=== PATIENT | female | born 1975 | race Two or more races ===

== ENCOUNTER 2017-03-18 16:30 | Emergency (ER) | payer BC, OTHER ==
[~2017-03-18] VITALS: Ht 160 cm; Wt 115.2 kg
[2017-03-18 16:58] LABS: Basophils # (auto) 0 uL; Basophils % (auto) 0.3 % (0.0-2.0); Eosinophils # (auto) 0.2 uL; Eosinophils % (auto) 1.8 % (0.0-7.0); Hematocrit 39.7 % (36.0-46.0); Hemoglobin 13.4 g/dL (12.2-16.2); Lymphocytes # (auto) 3.7 uL; Lymphocytes % (auto) 39.7 % (10.0-50.0); Mean Corpuscular Hemoglobin 29.6 pg (28.0-32.0); Mean Corpuscular Hgb Conc. 33.6 g/dL (32.0-36.0); Mean Corpuscular Volume 87.9 fL (80.0-100.0); Mean Platelet Volume 9.3 fL (7.4-10.4); Monocytes # (auto) 0.6 uL; Monocytes % (auto) 6.2 % (0.0-12.0); Neutrophils # (auto) 4.8 uL; Platelet Count (auto) 291 10^3/uL (140-450); Red Cell Distribution Width 13.8 % (11.6-16.0); White Blood Cell 9.3 10^3/uL (4.4-10.8)
[2017-03-18 17:10] LABS: Urine Bilirubin Negative (Negative); Urine Blood Negative /uL (Negative); Urine Color Yellow (Yellow); Urine Glucose Normal (Normal); Urine Ketone Negative (Negative); Urine Nitrite Negative (Negative); Urine RBC <1 /hpf (0 - 4); Urine Squamous Epithelial Cell FEW /hpf (<5); Urine Urobilinogen Normal (Negative)
[2017-03-18 17:16] LABS: Albumin 3.5 g/dL (3.4-5.0); Amylase 35 U/L (25-115); Anion Gap 9 (5-15); Aspartate Aminotransferase 15 U/L (15-37); BUN/Creatinine Ratio 15.9; Blood Urea Nitrogen 13 mg/dL (7-18); Carbon Dioxide 26 mmol/L (21-32); Chloride 107 mmol/L (98-107); GFR African American 98 mL/min; GFR Non-African American 81 mL/min; Glucose 98 mg/dL (74-106); Potassium 3.7 mmol/L (3.5-5.1); Sodium 142 mmol/L (136-145)
[2017-03-18 17:22] LABS: Alkaline Phosphatase 73 U/L (45-117); Bilirubin, Total 0.2 mg/dL (0.2-1.0); Total Protein 7.3 g/dL (6.4-8.2)
[2017-03-18] MEDS ORDERED: PREG50CA PO (18:02)
[2017-03-18] MEDS ORDERED: CHOL135C6 OR (18:02)
[2017-03-18] MEDS ORDERED: CYCL5TAB PO (18:02)
[2017-03-18] MEDS ORDERED: DULO30CA PO (18:02)
[2017-03-18 19:13] VITALS: BP 119/62
== END 2017-03-18 21:41 | disposition home or self-care (01) ==
LOC: ER 16:34
CPT/HCPCS: 36415; 74176; 80053; 81001; 82150; 83690; 83735; 84484; 85025

== ENCOUNTER 2023-10-19 07:39 | Emergency (ER) | payer BC ==
[~2023-10-19] VITALS: Ht 160 cm; Wt 124.4 kg
[~2023-10-19 07:39] MED LIST: CHOL135C10 OR; CYCL-837 PO; DULO30CA PO; PREG50CA PO
[2023-10-19 08:26] VITALS: BP 125/80; PULSE 92; RESP 16; O2SAT 95
[2023-10-19] MEDS ORDERED: IBUPROFEN 600 MG TAB PO ONE (08:45)
[2023-10-19] MEDS ORDERED: ACETAMINOPHEN 500 MG TAB PO ONE (08:45)
[2023-10-19] MEDS ORDERED: IBUP1TAB5 PO ×3 (08:48→09:31)
[2023-10-19 08:55] VITALS: TEMP 97.7
== END 2023-10-19 09:03 | disposition home or self-care (01) ==
LOC: ER 07:39
DX: S50.11XA Contusion of right forearm, initial encounter (principal); W17.89XA Other fall from one level to another, initial encounter; Y93.89 Activity, other specified; Y92.89 Other specified places as the place of occurrence of the external cause; Y99.8 Other external cause status
CPT/HCPCS: 73090

== ENCOUNTER 2023-12-27 11:14 | Emergency (ER) | payer BC ==
[~2023-12-27] VITALS: Ht 160 cm; Wt 115.4 kg
[~2023-12-27 11:14] MED LIST changes: +IBUP1TAB5 PO
[2023-12-27 12:26] LABS: Basophils # (auto) 0.1 10 ^3/uL (0-0.2); Basophils % (auto) 0.6 % (0.0-2.0); Eosinophils # (auto) 0.2 10 ^3/uL (0-0.8); Eosinophils % (auto) 1.5 % (0.0-7.0); Hematocrit 44.2 % (36.0-46.0); Hemoglobin 14.7 g/dL (12.2-16.2); Lymphocytes # (auto) 3.9 10 ^3/uL (0.4-5.4); Lymphocytes % (auto) 34.5 % (10.0-50.0); Mean Corpuscular Hemoglobin 29.5 pg (28.0-32.0); Mean Corpuscular Hgb Conc. 33.4 g/dL (32.0-36.0); Mean Corpuscular Volume 88.4 fL (80.0-100.0); Monocytes # (auto) 0.6 10 ^3/uL (0-1.3); Monocytes % (auto) 5.3 % (0.0-12.0); Neutrophils # (auto) 6.5 10 ^3/uL (1.6-8.6); Neutrophils % (auto) 58.1 % (37.0-80.0); Nucleated Red Blood Cells % 0.1 %; Red Cell Distribution Width 14.7 % (11.8-14.3); White Blood Cell 11.2 10^3/uL (4.4-10.8)
[2023-12-27 12:27] LABS: Urine Bacteria FEW /hpf (None Seen); Urine Blood Negative /uL (Negative); Urine Clarity Clear (Clear); Urine Color Yellow (Yellow); Urine Mucus FEW (None Seen); Urine Protein, UAD TRACE (Negative); Urine Urobilinogen Normal (Negative); Urine WBC 1 /hpf (0 - 5)
[2023-12-27 12:44] LABS: Chloride 108 mmol/L (98-107); Sodium 140 mmol/L (136-145)
[2023-12-27 12:45] LABS: Anion Gap 4 (5-15); Carbon Dioxide 28 mmol/L (20-30)
[2023-12-27 12:46] LABS: Calcium 9.3 mg/dL (8.7-10.4)
[2023-12-27 12:50] LABS: BUN/Creatinine Ratio 13.1 (10.0-20.0); Blood Urea Nitrogen 8 mg/dL (9-23); Glucose 94 mg/dL (74-106)
[2023-12-27 13:41] VITALS: BP 144/92; PULSE 80; RESP 16; TEMP 97.7; O2SAT 94
[2023-12-27] MEDS ORDERED: HYDR-4902 PO (13:45)
[2023-12-27] MEDS: HYDROcodone-ACET 5/325MG TAB PO ONE (14:00)
== END 2023-12-27 13:46 | disposition home or self-care (01) ==
LOC: ER 11:14
DX: R10.2 Pelvic and perineal pain (principal); F41.9 Anxiety disorder, unspecified; E11.9 Type 2 diabetes mellitus without complications; E78.5 Hyperlipidemia, unspecified; F17.210 Nicotine dependence, cigarettes, uncomplicated; Z98.890 Other specified postprocedural states; Z79.899 Other long term (current) drug therapy
CPT/HCPCS: 36415; 74176; 80048; 81001; 85025